=== PATIENT | female | born 1950 | race Caucasian/White ===

== ENCOUNTER 2022-05-14 11:01 | Outpatient (REF) | payer MEDICARE, SELFPAY ==
[2022-05-14 14:07] LABS: Cholesterol 246 mg/dL; HDL Cholesterol 66 mg/dL; LDL Cholesterol Calculated 166 mg/dl; Triglycerides 72 mg/dL
[2022-05-14 14:37] LABS: Folate 9.4 ng/mL (> or = 4.0); Vitamin B12 335 pg/mL (200-900)
[2022-05-16 08:56] LABS: CA-125 7 U/mL (<35)
== END 2022-05-14 11:02 | disposition home or self-care (01) ==
LOC: HO.HMGCLDS 11:01
PROVIDERS: Visit Provider Internal Medicine
DX: C56.9 Malignant neoplasm of unspecified ovary (principal); E55.9 Vitamin D deficiency, unspecified; E78.5 Hyperlipidemia, unspecified
CPT/HCPCS: 36415; 80061; 82607; 82746; 86304

== ENCOUNTER 2022-06-16 11:35 | Outpatient (REF) | payer MEDICARE, SELFPAY ==
--- NOTE | ~2022-06-16 | XR_ITS ---
EXAMINATION: XR KNEE AP STANDING CLINICAL INFORMATION: Knee pain. COMPARISON: None TECHNIQUE: AP bilateral standing view of the knees was obtained. FINDINGS: Both knees show osteoarthritis greatest medial knee joint compartments with secondary bilateral genu varus. There is subchondral sclerosis and osteophytes from the femoral condyles and tibial plateau. No visible erosive change or chondrocalcinosis. There may be a geode within the right lateral tibial plateau. XR/XR knee standing BI IMPRESSION: Bilateral osteoarthritis greatest medial compartment with bilateral secondary genu varus.
== END 2022-06-16 11:36 | disposition home or self-care (01) ==
LOC: HO.XRAY 11:35
PROVIDERS: PCP Internal Medicine; Visit Provider Internal Medicine
DX: M25.561 Pain in right knee (principal); M25.562 Pain in left knee; M17.0 Bilateral primary osteoarthritis of knee; M21.162 Varus deformity, not elsewhere classified, left knee; M21.161 Varus deformity, not elsewhere classified, right knee
CPT/HCPCS: 73565

== ENCOUNTER 2023-10-04 10:42 | Outpatient (AMB) | payer MEDICARE, SELFPAY ==
--- NOTE | 2023-10-04 10:44 | A.OFFPC_ITS ---
Vital Signs 10/04/23 10:47 Height 5 ft 4 in Weight 228 lb BMI 39.1 BP 132/76 Blood Pressure Location Lt brachial Position Sitting Pulse 88 Pulse Source Pulse Oximeter Pulse Oximetry (%) 96 Oxygen Delivery Method Room Air Intake Visit Reasons: 6M FOLLOW UP HTN Intake Note: Pt is here today for 6 months follow up visit. Allergies No Known Allergies Allergy (Verified 10/04/23 10:59) Medication List - Last Reconciled 10/04/23 by Jennifer Singh MD levothyroxine 100 mcg PO DAILY lisinopril 10 mg PO DAILY meloxicam 15 mg PO DAILY pravastatin 20 mg PO DAILY varicella-zoster gE-AS01B (PF) 50 mcg/0.5 mL 0.5 mL IM DIRECTED Tobacco use date assessed: 10/04/23 Fall risk assessment: No Falls in past year Last assessed Fall Risk: 10/04/23 Dental Screening Dental Screen Date: 10/04/23 Did you have a dental visit in the last 12 months?: Yes Did you have a dental problem in the last 6 months where you did not have access to dental care?: No Was dental information given to patient?: Patient has dentist HPI 6M FOLLOW UP HTN HPI Details Pt presents for f/u HTN and hyperlipid, stable on meds. [facility] Medical History Annual physical exam Esophageal ulcer Hyperlipidemia Hypertension Hypothyroidism Osteoarthritis Ovarian ca Overweight SVT (supraventricular tachycardia) Thyroid nodule Vitamin D deficiency Surgical History H/O colonoscopy History of total abdominal hysterectomy and bilateral salpingo-oophorectomy Family History (Updated 10/04/23 @ 11:01 by Felicitas Shaw Dio) Father No problems noted. Mother No problems noted. Social History Housing: House Alcohol intake: never Patient Tobacco Use Status: Former Tobacco user Quit Date: 40 years ago e-Cigarette/Vaping Use: Never Used Second Hand Smoke Exposure: No service: No Current occupational status: retired Cognitive needs: No Hearing needs: No Vision needs: Yes Questionnaire PHQ-9 Over the last 2 weeks, how often have you been bothered by any of the following problems? 1. Little interest or pleasure in doing things: not at all 2. Feeling down, depressed, or hopeless: not at all 3. Trouble falling or staying asleep, or sleeping too much: not at all 4. Feeling tired or having little energy: not at all 5. Poor appetite or overeating: not at all 6. Feeling bad about yourself - or that you are a failure or have let yourself or your family down: not at all 7. Trouble concentrating on things, such as reading the newspaper or watching television: not at all 8. Moving or speaking so slowly that other people could have noticed. Or the opposite - being so fidgety or restless that you have been moving around a lot more than usual: not at all 9. Thoughts that you would be better off or of hurting yourself in some way: not at all Total score: 0 Depression Screening Interpretation: Negative Depression Screening Done: Yes 90114 - PHQ-9 Billing: Yes Source: Developed by Drs. Sang Walker, Isabel Hall, Jaycob Milan and colleagues, with an educational tonny from [employer]. Thrive Questionnaire Date Thrive assessed: 10/04/23 I am a: Patient What is your living situation today?: I have a steady place to live Within the past 12 months, did the food you bought not last and you didn't have the money to get more?: Never true Within the past 12 months, did you worry whether your food would run out before you got money to buy more?: Never true Do you have trouble paying for medicines?: No Do you have trouble getting transportation to medical appointments?: No AUDIT C Alcohol Use Questionnaire (AUDIT-C) 1. How often do you have a drink containing alcohol?: Never 3. How often do you have six or more drinks on one occasion?: Never Total Score: 0 FLORI-7 AMB Questionnaire FLORI-7 Feeling nervous, anxious, or on edge: 0 = Not at all Not being able to stop or control worryin = Not at all Worrying too much about different things: 0 = Not at all Trouble relaxin = Not at all Being so restless that it is hard to sit still: 0 = Not at all Becoming easily annoyed or irritable: 0 = Not at all Feeling afraid as if something awful might happen: 0 = Not at all Total FLORI-7 score (0-4 normal; 5-9 mild; 10-14 moderate; 15-21 severe): 0 Source: Developed by Drs. Sang Walker, Isabel Hall, Jaycob Milan and colleagues, with an educational tonny from [employer]. Review of Systems Const All systems reviewed & are unremarkable except as noted in HPI and below Reports no additional complaints Eyes Reports no additional complaints ENT Reports no additional complaints Card Reports no additional complaints Resp Reports no additional complaints GI Reports no additional complaints Reports no additional complaints Musc Reports no additional complaints Physical exam (Primary Care) Vital Signs: Last Vital Signs Pulse 88 10/04/23 10:47 BP 132/76 10/04/23 10:47 Pulse Ox 96 10/04/23 10:47 Oxygen Delivery Method Room Air 10/04/23 10:47 BMI result Body Mass Index 39.1 Tobacco/Smoking Status: Tobacco use Status Tobacco use date assessed 10/04/23 10/04/23 11:04 Patient Tobacco Use Status Former Tobacco user 10/04/23 10:45 e-Cigarette/Vaping Use Never Used 10/04/23 10:45 PHQ-9: PHQ-9 Score PHQ-9: Total score 0 10/04/23 11:04 Depression Screening Interpretation: Negative Thrive Assessment: Date of Thrive Assessment Date Thrive assessed 10/04/23 10/04/23 11:04 Assessment and Plan Assessment & Plan (1) Hypothyroidism: Code(s): E03.9 - Hypothyroidism, unspecified Plan: cont Levothyroxine (2) Hyperlipidemia: Code(s): E78.5 - Hyperlipidemia, unspecified Plan: cont Pravastain (3) Hypertension: Code(s): I10 - Essential (primary) hypertension Plan: cont Lisinopril (4) Hyperglycemia: Code(s): R73.9 - Hyperglycemia, unspecified Plan: ADA diet, increase exercise, weight loss discussed Orders: Orders TSH reflex Free T4 6 Months E03.9 - Hypothyroidism, unspecified, E78.5 - Hyperlipidemia, unspecified, I10 - Essential (primary) hypertension, R73.9 - Hyperglycemia, unspecified Hemoglobin A1c 6 Months C56.9 - Malignant neoplasm of unspecified ovary, R73.9 - Hyperglycemia, unspecified Comprehensive [place]. Panel Fast 6 Months E03.9 - Hypothyroidism, unspecified, E7 8.5 - Hyperlipidemia, unspecified, I10 - Essential (primary) hypertension, R73.9 - Hyperglycemia, unspecified Complete Blood Count Auto Diff 6 Months E03.9 - Hypothyroidism, unspecified, E78.5 - Hyperlipidemia, unspecified, I10 - Essential (primary) hypertension, R73.9 - Hyperglycemia, unspecified Lipid Panel 6 Months E03.9 - Hypothyroidism, unspecified, E78.5 - Hyperlipidemia, unspecified, I10 - Essential (primary) hypertension, R73.9 - Hyperglycemia, unspecified CA-125 6 Months C56.9 - Malignant neoplasm of unspecified ovary, R73.9 - Hyperglycemia, unspecified Medications: New lisinopril 10 mg PO DAILY 90 tabs 3RF Refilled levothyroxine 100 mcg PO DAILY 90 tabs 3RF Discontinued lisinopril Discontinued Reason: Doctor's Order 5 mg PO BID 180 tabs 3RF Coding Level of Care Code Est Pt Level 4 (23783) Diagnoses Hypothyroidism E03.9 Hyperlipidemia E78.5 Hypertension I10 Hyperglycemia R73.9
[2023-10-04 10:47] VITALS: BP 132/76; PULSE 88; O2SAT 96; BMI 39.1
== END 2023-10-04 11:56 | disposition home or self-care (01) ==
PROVIDERS: PCP Internal Medicine; Visit Provider Internal Medicine
DX: E03.9 Hypothyroidism, unspecified (principal); E78.5 Hyperlipidemia, unspecified; I10 Essential (primary) hypertension; R73.9 Hyperglycemia, unspecified
CPT/HCPCS: 99214

== ENCOUNTER 2024-03-17 12:57 | Outpatient (AMB) | payer MEDICARE, SELFPAY ==
[2024-03-17 13:10] VITALS: BP 128/76; PULSE 64; O2SAT 96; BMI 37.8
--- NOTE | 2024-03-17 13:10 | MHC.PC.OV ---
Vital Signs 03/17/24 13:10 Height 5 ft 4 in Weight 220 lb BMI 37.8 BP 128/76 Blood Pressure Location Lt brachial Position Sitting Pulse 64 Pulse Source Pulse Oximeter Pulse Oximetry (%) 96 Oxygen Delivery Method Room Air Intake Visit Reasons: 03/30 upper eyelid blepharoplasty Intake Note: Pt is here today for a pre op visit. Allergies No Known Allergies Allergy (Verified 03/17/24 13:17) Medication List - Last Reconciled 03/17/24 by Jennifer Singh MD levothyroxine 100 mcg PO DAILY lisinopril 10 mg PO DAILY meloxicam 15 mg PO DAILY pravastatin 20 mg PO DAILY varicella-zoster gE-AS01B (PF) 50 mcg/0.5 mL 0.5 mL IM DIRECTED Tobacco use date assessed: 03/17/24 Fall risk assessment: No Falls in past year Last assessed Fall Risk: 03/17/24 Dental Screening Dental Screen Date: 03/17/24 Did you have a dental visit in the last 12 months?: Yes Did you have a dental problem in the last 6 months where you did not have access to dental care?: No Was dental information given to patient?: Patient has dentist HPI 03/30 upper eyelid blepharoplasty HPI Details Pt presents for preop for [place] blepharoplasty. HTN, hyperlipid, are controlled on current medications. [facility] Medical History Esophageal ulcer Annual physical exam Vitamin D deficiency Osteoarthritis Thyroid nodule SVT (supraventricular tachycardia) Hyperlipidemia Ovarian ca Overweight Hypothyroidism Hypertension Surgical History H/O colonoscopy History of total abdominal hysterectomy and bilateral salpingo-oophorectomy Family History Father No problems noted. Mother No problems noted. Social History Housing: House Alcohol intake: never Patient Tobacco Use Status: Former Tobacco user Quit Date: 40 years ago e-Cigarette/Vaping Use: Never Used Second Hand Smoke Exposure: No service: No Current occupational status: retired Cognitive needs: No Hearing needs: No Vision needs: Yes Questionnaire PHQ-9 Over the last 2 weeks, how often have you been bothered by any of the following problems? 1. Little interest or pleasure in doing things: not at all 2. Feeling down, depressed, or hopeless: not at all 3. Trouble falling or staying asleep, or sleeping too much: not at all 4. Feeling tired or having little energy: not at all 5. Poor appetite or overeating: not at all 6. Feeling bad about yourself - or that you are a failure or have let yourself or your family down: not at all 7. Trouble concentrating on things, such as reading the newspaper or watching television: not at all 8. Moving or speaking so slowly that other people could have noticed. Or the opposite - being so fidgety or restless that you have been moving around a lot more than usual: not at all 9. Thoughts that you would be better off or of hurting yourself in some way: not at all Total score: 0 Depression Screening Interpretation: Negative Depression Screening Done: Yes Source: Developed by Drs. Sang Walker, Isabel Hall, Jaycob Milan and colleagues, with an educational tonny from [email or web address]. Thrive Questionnaire Date Thrive assessed: 03/17/24 I am a: Patient What is your living situation today?: I have a steady place to live Within the past 12 months, did the food you bought not last and you didn't have the money to get more?: Never true Within the past 12 months, did you worry whether your food would run out before you got money to buy more?: Never true Do you have trouble paying for medicines?: No Do you have trouble getting transportation to medical appointments?: No Do you have trouble paying your heating and electricity bill?: No Do you have trouble taking care of your child, family member or friend?: No Do you have trouble with day-to-day activities such as bathing, preparing meals, shopping, managing finances, etc.?: No Are you currently unemployed and looking for a job?: No Are you interested in more education?: No Please select the resources that you would like help with: None THRIVE Score: 0 AUDIT C Alcohol Use Questionnaire (AUDIT-C) 1. How often do you have a drink containing alcohol?: Never 3. How often do you have six or more drinks on one occasion?: Never Total Score: 0 FLORI-7 AMB Questionnaire FLORI-7 Date FLORI - 7 assessed: 03/17/24 Feeling nervous, anxious, or on edge: 0 = Not at all Not being able to stop or control worryin = Not at all Worrying too much about different things: 0 = Not at all Trouble relaxin = Not at all Being so restless that it is hard to sit still: 0 = Not at all Becoming easily annoyed or irritable: 0 = Not at all Feeling afraid as if something awful might happen: 0 = Not at all Total FLORI-7 score (0-4 normal; 5-9 mild; 10-14 moderate; 15-21 severe): 0 Source: Developed by Drs. Sang Walker, Isabel Hall, Jaycob Milan and colleagues, with an educational tonny from [email or web address]. Review of Systems Const All systems reviewed & are unremarkable except as noted in HPI and below Eyes Reports no additional complaints ENT Reports no additional complaints Card Reports no additional complaints Resp Reports no additional complaints GI Reports no additional complaints Physical exam (Primary Care) Vital Signs: Last Vital Signs Pulse 64 03/17/24 13:10 BP 128/76 03/17/24 13:10 Pulse Ox 96 03/17/24 13:10 Oxygen Delivery Method Room Air 03/17/24 13:10 BMI result Body Mass Index 37.8 Tobacco/Smoking Status: Tobacco use Status Tobacco use date assessed 03/17/24 03/17/24 13:22 Patient Tobacco Use Status Former Tobacco user 03/17/24 13:22 e-Cigarette/Vaping Use Never Used 03/17/24 13:10 PHQ-9: PHQ-9 Score PHQ-9: Total score 0 03/17/24 13:28 Depression Screening Interpretation: Negative Thrive Assessment: Date of Thrive Assessment Date Thrive assessed 03/17/24 03/17/24 13:28 HENMT Face and sinus: Yes normal facial exam Neck Neck: Yes supple Resp Effort & Inspection: normal respiratory effort Auscultation: clear to auscultation bilaterally Cardio Rhythm: regular rhythm Heart sounds: S1 normal heart sound present and S2 normal heart sound present GI Inspection: Yes normal to inspection Palpation (GI): Soft to palpation Percussion: Yes normal to percussion Auscultation: normal bowel sounds Assessment and Plan Assessment & Plan (1) Ovarian ca: Comment: s/p EUSEBIO/BSO Code(s): C56.9 - Malignant neoplasm of unspecified ovary Plan: Monitor CA 125 (2) Hyperglycemia: Code(s): R73.9 - Hyperglycemia, unspecified Plan: Continue ADA diet, regular exercise return in 4 months with a fasting labs before including A1c (3) Hypertension: Code(s): I10 - Essential (primary) hypertension Plan: Continue current medications (4) Hypothyroidism: Code(s): E03.9 - Hypothyroidism, unspecified Plan: Continue levothyroxine (5) Hyperlipidemia: Code(s): E78.5 - Hyperlipidemia, unspecified Plan: Continue statin (6) Dermatochalasis of both upper eyelids: Code(s): H02.831 - Dermatochalasis of right upper eyelid; H02.834 - Dermatochalasis of left upper eyelid Plan: EKG showed normal sinus rhythm no ST-T changes. Patient is medically cleared for bilateral upper lid blepharoplasty Orders: Orders AMB EKG-In Office Today E03.9 - Hypothyroidism, unspecified, I10 - Essential (primary) hypertension Comprehensive [place]. Panel Fast 4 Months C56.9 - Malignant neoplasm of unspecified ovary, E03.9 - Hypothyroidism, unspecified, E78.5 - Hyperlipidemia, unspecified, I10 - Essential (primary) hypertension, R73.9 - Hyperglycemia, unspecified Hemoglobin A1c 4 Months C56.9 - Malignant neoplasm of unspecified ovary, E03.9 - Hypothyroidism, unspecified, E78.5 - Hyperlipidemia, unspecified, I10 - Essential (primary) hypertension, R73.9 - Hyperglycemia, unspecified Lipid Panel 4 Months C56.9 - Malignant neoplasm of unspecified ovary, E03.9 - Hypothyroidism, unspecified, E78.5 - Hyperlipidemia, unspecified, I10 - Essential (primary) hypertension, R73.9 - Hyperglycemia, unspecified Complete Blood Count Auto Diff 4 Months C56.9 - Malignant neoplasm of unspecified ovary, E03.9 - Hypothyroidism, unspecified, E78.5 - Hyperlipidemia, unspecified, I10 - Essential (primary) hypertension, R73.9 - Hyperglycemia, unspecified TSH reflex Free T4 4 Months C56.9 - Malignant neoplasm of unspecified ovary, E03.9 - Hypothyroidism, unspecified, E78.5 - Hyperlipidemia, unspecified, I10 - Essential (primary) hypertension, R73.9 - Hyperglycemia, unspecified CA-125 4 Months C56.9 - Malignant neoplasm of unspecified ovary, E03.9 - Hypothyroidism, unspecified, E78.5 - Hyperlipidemia, unspecified, I10 - Essential (primary) hypertension, R73.9 - Hyperglycemia, unspecified Coding Level of Care Code Est Pt Level 4 (01986) Diagnoses Ovarian ca C56.9 Hyperglycemia R73.9 Hypertension I10 Hypothyroidism E03.9 Hyperlipidemia E78.5 Dermatochalasis of both upper eyelids H02.831; H02.834
== END 2024-03-17 13:43 | disposition home or self-care (01) ==
PROVIDERS: PCP Internal Medicine; Visit Provider Internal Medicine
DX: C56.9 Malignant neoplasm of unspecified ovary (principal); R73.9 Hyperglycemia, unspecified; I10 Essential (primary) hypertension; E03.9 Hypothyroidism, unspecified; E78.5 Hyperlipidemia, unspecified; H02.831 Dermatochalasis of right upper eyelid; H02.834 Dermatochalasis of left upper eyelid
CPT/HCPCS: 99214

== ENCOUNTER 2024-07-10 11:52 | Outpatient (AMB) | payer MEDICARE, OTHER, SELFPAY ==
[2024-07-10 11:56] VITALS: BP 130/74; PULSE 69; O2SAT 99; BMI 37.8
--- NOTE | 2024-07-10 11:56 | MHC.PC.OV ---
Vital Signs 07/10/24 11:56 Height 5 ft 4 in Weight 220 lb BMI 37.8 BP 130/74 Blood Pressure Location Rt brachial Position Sitting Pulse 69 Pulse Source Pulse Oximeter Pulse Oximetry (%) 99 Oxygen Delivery Method Room Air Intake Visit Reasons: Annual PE Intake Note: Pt is here today for PE. Allergies lisinopril Adverse Reaction (Intermediate, Verified 07/10/24 12:48) Cough Tobacco use date assessed: 07/10/24 Fall risk assessment: No Falls in past year Last assessed Fall Risk: 07/10/24 Dental Screening Dental Screen Date: 03/17/24 HPI Annual PE HPI Details Pt presents for PE. Patient complains of chronic dry cough worse when laying down. She denies GERD symptoms reports intermittent postnasal drip but no other allergy . symptoms. Patient denies PND orthopnea dyspnea on exertion or chest pain, night sweats. PFSH Medical History Esophageal ulcer Annual physical exam Vitamin D deficiency Osteoarthritis Thyroid nodule SVT (supraventricular tachycardia) Hyperlipidemia Ovarian ca Overweight Hypothyroidism Hypertension Surgical History H/O colonoscopy History of total abdominal hysterectomy and bilateral salpingo-oophorectomy Family History Father No problems noted. Mother No problems noted. Social History Housing: House Alcohol intake: never Patient Tobacco Use Status: Former Tobacco user e-Cigarette/Vaping Use: Never Used Second Hand Smoke Exposure: No service: No Current occupational status: retired Cognitive needs: No Hearing needs: No Vision needs: Yes Questionnaire PHQ-9 Over the last 2 weeks, how often have you been bothered by any of the following problems? 1. Little interest or pleasure in doing things: not at all 2. Feeling down, depressed, or hopeless: not at all 3. Trouble falling or staying asleep, or sleeping too much: not at all 4. Feeling tired or having little energy: not at all 5. Poor appetite or overeating: not at all 6. Feeling bad about yourself - or that you are a failure or have let yourself or your family down: not at all 7. Trouble concentrating on things, such as reading the newspaper or watching television: not at all 8. Moving or speaking so slowly that other people could have noticed. Or the opposite - being so fidgety or restless that you have been moving around a lot more than usual: not at all 9. Thoughts that you would be better off or of hurting yourself in some way: not at all Total score: 0 Depression Screening Interpretation: Negative Depression Screening Done: Yes 43499 - PHQ-9 Billing: Yes Source: Developed by Drs. Sang Walker, Isabel Hall, Jaycob Milan and colleagues, with an educational tonny from [employer]. Thrive Questionnaire Date Thrive assessed: 07/10/24 I am a: Patient What is your living situation today?: I have a steady place to live Within the past 12 months, did the food you bought not last and you didn't have the money to get more?: Never true Within the past 12 months, did you worry whether your food would run out before you got money to buy more?: Never true Do you have trouble paying for medicines?: No Do you have trouble getting transportation to medical appointments?: No Do you have trouble paying your heating and electricity bill?: No Do you have trouble taking care of your child, family member or friend?: No Do you have trouble with day-to-day activities such as bathing, preparing meals, shopping, managing finances, etc.?: No Are you currently unemployed and looking for a job?: No Are you interested in more education?: No THRIVE Score: 0 AUDIT C Alcohol Use Questionnaire (AUDIT-C) 1. How often do you have a drink containing alcohol?: Never 3. How often do you have six or more drinks on one occasion?: Never Total Score: 0 FLORI-7 AMB Questionnaire FLORI-7 Date FLORI - 7 assessed: 07/10/24 Source: Developed by Drs. Sang Walker, Isabel Hall, Jaycob Milan and colleagues, with an educational tonny from [employer]. Review of Systems Const All systems reviewed & are unremarkable except as noted in HPI and below Reports no additional complaints Eyes Reports no additional complaints ENT Reports no additional complaints Card Reports no additional complaints Resp Reports no additional complaints GI Reports no additional complaints Reports no additional complaints Musc Reports no additional complaints Physical exam (Primary Care) Vital Signs: Last Vital Signs Pulse 69 07/10/24 11:56 BP 130/74 07/10/24 11:56 Pulse Ox 99 07/10/24 11:56 Oxygen Delivery Method Room Air 07/10/24 11:56 BMI result Body Mass Index 37.8 Tobacco/Smoking Status: Tobacco use Status Tobacco use date assessed 07/10/24 07/10/24 12:00 Patient Tobacco Use Status Former Tobacco user 07/10/24 12:00 e-Cigarette/Vaping Use Never Used 07/10/24 12:00 PHQ-9: PHQ-9 Score PHQ-9: Total score 0 07/10/24 12:02 Depression Screening Interpretation: Negative Thrive Assessment: Date of Thrive Assessment Date Thrive assessed 07/10/24 07/10/24 12:00 Const General: no acute distress HENMT Head: Yes normal to inspection Ears: hearing grossly normal bilaterally Face and sinus: Yes normal facial exam Mouth: Normal oral and palatal mucosa present Throat: Yes posterior oropharynx normal Eyes General: appearance normal, both eyes and all related structures Neck Neck: Yes no lymphadenopathy and Yes supple Resp Effort & Inspection: normal respiratory effort Auscultation: clear to auscultation bilaterally Cardio Rhythm: regular rhythm Heart sounds: S1 normal heart sound present and S2 normal heart sound present GI Inspection: Yes normal to inspection Palpation (GI): Soft to palpation Percussion: Yes normal to percussion Auscultation: normal bowel sounds Assessment and Plan Assessment & Plan (1) Hypertension: Code(s): I10 - Essential (primary) hypertension Plan: Change lisinopril to losartan 50 mg follow-up in 2 months and check BMP in 2 weeks (2) Ovarian ca: Comment: s/p EUSEBIO/BSO Code(s): C56.9 - Malignant neoplasm of unspecified ovary Plan: Monitor CA 125 (3) Annual physical exam: Code(s): Z00.00 - Encounter for general adult medical examination without abnormal findings Plan: Well-balanced diet increase exercise weight loss discussed with the patient. She is up-to-date with the mammogram (4) Hypothyroidism: Code(s): E03.9 - Hypothyroidism, unspecified Plan: Continue levothyroxine (5) Hyperlipidemia: Code(s): E78.5 - Hyperlipidemia, unspecified Plan: Continue pravastatin low-cholesterol diet Orders: Orders Basic Metabolic Panel 2 Weeks I10 - Essential (primary) hypertension Medications: New losartan 50 mg PO DAILY 90 tabs 0RF Refilled levothyroxine 100 mcg PO DAILY 90 tabs 3RF pravastatin 20 mg PO DAILY 90 tabs 3RF Discontinued lisinopril Discontinued Reason: Doctor's Order 10 mg PO DAILY 90 tabs 3RF Coding Level of Care Code Est Pt Prev Care >65y(70376) Diagnoses Hypertension I10 Ovarian ca C56.9 Annual physical exam Z00.00 Hypothyroidism E03.9 Hyperlipidemia E78.5
== END 2024-07-10 12:46 | disposition home or self-care (01) ==
PROVIDERS: PCP Internal Medicine; Visit Provider Internal Medicine
DX: I10 Essential (primary) hypertension (principal); C56.9 Malignant neoplasm of unspecified ovary; E03.9 Hypothyroidism, unspecified; E78.5 Hyperlipidemia, unspecified
CPT/HCPCS: 99214

== ENCOUNTER 2025-04-30 11:07 | Outpatient (AMB) | payer MEDICARE, OTHER, SELFPAY ==
--- NOTE | 2025-04-30 11:12 | A.OFFPC_ITS ---
Vital Signs 04/30/25 11:21 Height 5 ft 4 in Weight 217 lb BMI 37.2 BP 132/82 Blood Pressure Location Lt brachial Position Sitting Respiration 18 Pulse 66 Pulse Source Pulse Oximeter Temp 98.3 F Temp Source Oral Pulse Oximetry (%) 97 Oxygen Delivery Method Room Air Intake Visit Reasons: Review of blood work Intake Note: Pt is here today for a follow up visit on blood work. Allergies lisinopril Adverse Reaction (Intermediate, Verified 04/30/25 11:25) Cough Medication List - Last Reconciled 04/30/25 by Jennifer Singh MD levothyroxine 100 mcg PO DAILY losartan 50 mg PO DAILY meloxicam 15 mg PO DAILY pravastatin 20 mg PO DAILY varicella-zoster gE-AS01B (PF) 50 mcg/0.5 mL 0.5 mL IM DIRECTED Tobacco use date assessed: 04/30/25 Fall risk assessment: No Falls in past year Last assessed Fall Risk: 04/30/25 Dental Screening Dental Screen Date: 04/30/25 Did you have a dental visit in the last 12 months?: Yes Did you have a dental problem in the last 6 months where you did not have access to dental care?: No Was dental information given to patient?: Patient has dentist HPI Review of blood work HPI Details Pt presents for f/u HTN and hypothyroid, hyperlipid. Patient spends 6 months in [place] and is established with primary care doctor in [place]. Patient denies complaints [facility] Medical History Esophageal ulcer Annual physical exam Vitamin D deficiency Osteoarthritis Thyroid nodule SVT (supraventricular tachycardia) Hyperlipidemia Ovarian ca Overweight Hypothyroidism Hypertension Surgical History (Reviewed 04/30/25 @ 11:28 by Felicitas Shaw [facility]) H/O colonoscopy History of total abdominal hysterectomy and bilateral salpingo-oophorectomy Family History Father No problems noted. Mother No problems noted. Social History Housing: House Alcohol intake: never Patient Tobacco Use Status: Former Tobacco user e-Cigarette/Vaping Use: Never Used Second Hand Smoke Exposure: No service: No Current occupational status: retired Cognitive needs: No Hearing needs: No Vision needs: Yes Questionnaire Thrive Questionnaire Date Thrive assessed: 04/30/25 AUDIT C Alcohol Use Questionnaire (AUDIT-C) 1. How often do you have a drink containing alcohol?: Never 3. How often do you have six or more drinks on one occasion?: Never Total Score: 0 FLORI-7 AMB Questionnaire FLORI-7 Date FLORI - 7 assessed: 07/10/24 Source: Developed by Drs. Sang Walker, Isabel Hall, Jaycob Milan and colleagues, with an educational tonny from [employer]. Review of Systems Const All systems reviewed & are unremarkable except as noted in HPI and below Eyes Reports no additional complaints ENT Reports no additional complaints Card Reports no additional complaints Resp Reports no additional complaints GI Reports no additional complaints Reports no additional complaints Musc Reports no additional complaints Physical exam (Primary Care) Vital Signs: Last Vital Signs Temp 98.3 F 04/30/25 11:21 Pulse 66 04/30/25 11:21 Resp 18 04/30/25 11:21 BP 132/82 04/30/25 11:21 Pulse Ox 97 04/30/25 11:21 Oxygen Delivery Method Room Air 04/30/25 11:21 BMI result Body Mass Index 37.2 Tobacco/Smoking Status: Tobacco use Status Tobacco use date assessed 04/30/25 04/30/25 11:28 Patient Tobacco Use Status Former Tobacco user 04/30/25 11:28 e-Cigarette/Vaping Use Never Used 04/30/25 11:12 Thrive Assessment: Date of Thrive Assessment Date Thrive assessed 04/30/25 04/30/25 11:12 Const General: no acute distress HENMT Head: Yes normal to inspection Face and sinus: Yes normal facial exam Eyes General: appearance normal, both eyes and all related structures Neck Neck: Yes supple Resp Effort & Inspection: normal respiratory effort Auscultation: clear to auscultation bilaterally Cardio Rhythm: regular rhythm Heart sounds: S1 normal heart sound present and S2 normal heart sound present GI Inspection: Yes normal to inspection Palpation (GI): Soft to palpation Percussion: Yes normal to percussion Auscultation: normal bowel sounds Coding Level of Care Code Est Pt Level 4 (26544) Diagnoses Hypertension I10 Hyperlipidemia E78.5 Hyperglycemia R73.9 Hypothyroidism E03.9 Assessment & Plan Assessment & Plan (1) Hypertension: Code(s): I10 - Essential (primary) hypertension Category: Medical Plan: cont Losartan (2) Hyperlipidemia: Code(s): E78.5 - Hyperlipidemia, unspecified Category: Medical Plan: cont Pravastatin (3) Hyperglycemia: Code(s): R73.9 - Hyperglycemia, unspecified Category: Medical Plan: A1C is 5.2, cont ADA, exercise, regular exercise. (4) Hypothyroidism: Code(s): E03.9 - Hypothyroidism, unspecified Category: Medical Plan: cont a thyroid replacement
[2025-04-30 11:21] VITALS: BP 132/82; PULSE 66; RESP 18; TEMP 36.8; O2SAT 97; BMI 37.2
--- OUTSIDE RECORDS SUMMARY | 2025-04-30 12:00 | XMS_ITS | Patient Health Record ---
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 Role Phone Jennifer Singh MD Primary Care Provider Shirley Tony Unavailable [phone] Reason For Referral No Information Medications Medication SIG (Take, Route, Frequency, Duration) Notes Start Date End Date Status Lisinopril 5 MG 1 tablet Orally Once a day Active Levothyroxine Sodium 88 MCG 1 tablet on an empty stomach in the morning Orally Once a day Active Social History Tobacco Use: Social History Observation Description Date Details (start date - stop date) Never Smoker NA - NA Tobacco Use/Smoking Question Answer Notes Are you a nonsmoker Alcohol Screen (Audit-C) Question Answer Notes Did you have a drink containing alcohol in the p ast year? No Points 0 Interpretation Negative Sexual History Question Answer Notes Had sex in the past 12 months (vaginal, oral, or anal)? Yes with Women only Prevention strategies discussed: Other Problems Problem Type SNOMED Code ICD Code Onset Dates Problem Status W/U Status Risk Notes Problem History of malignant neoplasm of ovary (149870763) Personal history of malignant neoplasm of ovary (Z85.43) Active confirmed Plan Of Treatment Pending Test Test Name Order Date MAMMOGRAM, SCREENING 07/04/2020 CANC ANT-125 10/07/2018 BONE DENSITY 07/04/2020 MM Digital Mammo Screening 07/04/2020 Insurance Providers Payer Name Payer Address Payer Phone Subscriber Number Group Number Insured Name Patient Relationship to Insured Coverage Start Date Coverage End Date MEDICARE [address] [place], [place] [id number] ANA AKBAR Self - patient is the insured [facility] [address] [place] [address] [id number] ANA AKBAR Self - patient is the insured Medical (General) History Medical History History ICD Code Malignant neoplasm of unspecified ovary C56.9 Essential (primary) hypertension I10 Thyroid disease Hormone replacement therapy Z79.890 Surgical History Surgery Date(Month/Year) Colonoscopy EUSEBIO/BSO - Ovarian Cancer Hospitalization History Reason Date(Month/Year) 1 Vaginal Delivery See Surgical Hx
== END 2025-04-30 12:11 | disposition home or self-care (01) ==
LOC: HO.HMCC 11:07
PROVIDERS: PCP Internal Medicine; Visit Provider Internal Medicine
DX: I10 Essential (primary) hypertension (principal); E78.5 Hyperlipidemia, unspecified; R73.9 Hyperglycemia, unspecified; E03.9 Hypothyroidism, unspecified

== ENCOUNTER → 2025-04-30 11:07 | Outpatient (BNVA) | payer MEDICARE, OTHER, SELFPAY | PROVIDERS: PCP Internal Medicine; Visit Provider Internal Medicine | DX: I10 Essential (primary) hypertension (principal); E78.5 Hyperlipidemia, unspecified; E03.9 Hypothyroidism, unspecified; R73.9 Hyperglycemia, unspecified | CPT/HCPCS: 99212 ==

== ENCOUNTER 2025-08-21 12:00 | Outpatient (AMB) | payer MEDICARE, OTHER, SELFPAY ==
[2025-08-21 12:02] VITALS: BP 128/82; PULSE 79; RESP 18; TEMP 36.7; O2SAT 97; BMI 36.9
--- NOTE | 2025-08-21 12:02 | A.OFFPC_ITS ---
Vital Signs 08/21/25 12:02 Height 5 ft 4 in Weight 215 lb BMI 36.9 BP 128/82 Blood Pressure Location Lt brachial Position Sitting Respiration 18 Pulse 79 Pulse Source Pulse Oximeter Temp 98.0 F Temp Source Oral Pulse Oximetry (%) 97 Oxygen Delivery Method Room Air Intake Visit Reasons: HDF Intake Note: Pt is here today for HDF. Allergies lisinopril Adverse Reaction (Intermediate, Verified 08/21/25 12:21) Cough Medication List - Last Reconciled 08/21/25 by Jennifer Singh MD apixaban (Eliquis) 5 mg PO BID diltiazem HCl ER (Cardizem SR) 120 mg PO DAILY levothyroxine 100 mcg PO DAILY liothyronine 5 mcg PO DAILY losartan 50 mg PO DAILY pravastatin 20 mg PO DAILY varicella-zoster gE-AS01B (PF) 50 mcg/0.5 mL 0.5 mL IM DIRECTED Tobacco use date assessed: 08/21/25 Fall risk assessment: No Falls in past year Last assessed Fall Risk: 08/21/25 Dental Screening Dental Screen Date: 04/30/25 HPI HDF HPI Details Pt presents for HDF from August 17 to August 18 at [facility] for an episode A flutter. Patient was having phone call with her daughter when she started feeling palpitations lightheadedness check her heart rate on smart watch was up to 150. Patient went to [facility] ER and was found to be in a flutter 2:1. She was started on diltiazem drip and converted to normal sinus rhythm. Patient has not had any recurrent palpitations or abnormal heart rate since the discharge. She was discharged on diltiazem and Eliquis. She has a history of AFib and catheter [place] [facility] [place] [facility] Medical History (Updated 08/21/25 @ 12:51 by Jennifer Singh MD) Atrial flutter Esophageal ulcer Annual physical exam Vitamin D deficiency Osteoarthritis Thyroid nodule SVT (supraventricular tachycardia) Hyperlipidemia Ovarian ca Overweight Hypothyroidism Hypertension Surgical History H/O colonoscopy History of total abdominal hysterectomy and bilateral salpingo-oophorectomy Family History Father No problems noted. Mother No problems noted. Social History Housing: House Alcohol intake: never Patient Tobacco Use Status: Former Tobacco user e-Cigarette/Vaping Use: Never Used Second Hand Smoke Exposure: No service: No Current occupational status: retired Cognitive needs: No Hearing needs: No Vision needs: Yes Questionnaire PHQ-9 Over the last 2 weeks, how often have you been bothered by any of the following problems? 1. Little interest or pleasure in doing things: not at all 2. Feeling down, depressed, or hopeless: not at all 3. Trouble falling or staying asleep, or sleeping too much: not at all 4. Feeling tired or having little energy: not at all 5. Poor appetite or overeating: not at all 6. Feeling bad about yourself - or that you are a failure or have let yourself or your family down: not at all 7. Trouble concentrating on things, such as reading the newspaper or watching television: not at all 8. Moving or speaking so slowly that other people could have noticed. Or the opposite - being so fidgety or restless that you have been moving around a lot more than usual: not at all 9. Thoughts that you would be better off or of hurting yourself in some way: not at all Total score: 0 Depression Screening Interpretation: Negative Depression Screening Done: Yes Source: Developed by Drs. Sang Walker, Isabel Hall, Jaycob Milan and colleagues, with an educational tonny from [employer] Thrive Questionnaire Date Thrive assessed: 08/20/25 I am a: Patient What is your living situation today?: I have a steady place to live Within the past 12 months, did the food you bought not last and you didn't have the money to get more?: Never true Within the past 12 months, did you worry whether your food would run out before you got money to buy more?: Never true Do you have trouble paying for medicines?: No Do you have trouble getting transportation to medical appointments?: No Do you have trouble paying your heating and electricity bill?: No Do you have trouble taking care of your child, family member or friend?: No Do you have trouble with day-to-day activities such as bathing, preparing meals, shopping, managing finances, etc.?: No Are you currently unemployed and looking for a job?: No Are you interested in more education?: No Please select the resources that you would like help with: None Currently or been in a relationship where the following occur: I choose not to answer THRIVE Score: 0 AUDIT C Alcohol Use Questionnaire (AUDIT-C) 1. How often do you have a drink containing alcohol?: Never 3. How often do you have six or more drinks on one occasion?: Never Total Score: 0 FLORI-7 AMB Questionnaire FLORI-7 Date FLORI - 7 assessed: 07/10/24 Feeling nervous, anxious, or on edge: 0 = Not at all Not being able to stop or control worryin = Not at all Worrying too much about different things: 0 = Not at all Trouble relaxin = Not at all Being so restless that it is hard to sit still: 0 = Not at all Becoming easily annoyed or irritable: 0 = Not at all Feeling afraid as if something awful might happen: 0 = Not at all Total FLORI-7 score (0-4 normal; 5-9 mild; 10-14 moderate; 15-21 severe): 0 Source: Developed by Drs. Sang Walker, Isabel Hall, Jaycob Milan and colleagues, with an educational tonny from [employer]. Review of Systems Const All systems reviewed & are unremarkable except as noted in HPI and below ENT Reports no additional complaints Card Reports no additional complaints Resp Reports no additional complaints GI Reports no additional complaints Reports no additional complaints Physical exam (Primary Care) Vital Signs: Last Vital Signs Temp 98.0 F 08/21/25 12:02 Pulse 79 08/21/25 12:02 Resp 18 08/21/25 12:02 BP 128/82 08/21/25 12:02 Pulse Ox 97 08/21/25 12:02 Oxygen Delivery Method Room Air 08/21/25 12:02 BMI result Body Mass Index 36.9 Tobacco/Smoking Status: Tobacco use Status Tobacco use date assessed 08/21/25 08/21/25 12:02 Patient Tobacco Use Status Former Tobacco user 08/21/25 12:02 e-Cigarette/Vaping Use Never Used 08/21/25 12:02 PHQ-9: PHQ-9 Score PHQ-9: Total score 0 08/21/25 12:02 Depression Screening Interpretation: Negative Thrive Assessment: Date of Thrive Assessment Date Thrive assessed 08/20/25 08/21/25 12:02 Currently or been in a relationship where the following occur: I choose not to answer Const General: no acute distress HENMT Head: Yes normal to inspection Face and sinus: Yes normal facial exam Eyes General: appearance normal, both eyes and all related structures Neck Neck: Yes supple Resp Effort & Inspection: normal respiratory effort Auscultation: clear to auscultation bilaterally Cardio Rhythm: regular rhythm Heart sounds: S1 normal heart sound present and S2 normal heart sound present GI Inspection: Yes normal to inspection Coding Level of Care Code TCM Mod MDM <= 7 Days Diagnoses Atrial flutter I48.92 Hypertension I10 Assessment & Plan Assessment & Plan (1) Atrial flutter: Comment: H[place] of [place] [facility] [place] Code(s): I48.92 - Unspecified atrial flutter Category: Medical Plan: Continue diltiazem and Eliquis. EKG showed normal sinus rhythm heart rate 81, no ST-T changes. pt is referred for echocardiogram and line tender at [facility] (2) Hypertension: Code(s): I10 - Essential (primary) hypertension Category: Medical Plan: Continue current medications Orders: Orders CA echo transthoracic complete Today I48.92 - Unspecified atrial flutter Referrals Cardiology Referral I48.92 - Unspecified atrial flutter
--- OUTSIDE RECORDS SUMMARY | 2025-08-21 15:23 | XMS_ITS | Patient Health Record ---
Author Organization [facility] Address [address] [place] [id number] Care Team Providers Care Farmworker Animal Name Role Phone Jennifer Singh MD Primary Care Provider Shirley Tony Unavailable [phone] Reason For Referral No Information Medications Medication [...] Problem History of malignant neoplasm of ovary ([id number]) Personal history of malignant neoplasm of ovary [...] MEDICARE [address] [place] [id number] ANA AKBAR Self - patient is the insured [facility] [address] [place] [id number] ANA AKBAR Self - patient is the insured Medical (General) History Medical History History ICD Code Malignant neoplasm of unspecified ovary C56.9 Essential (primary) hypertension I10 Thyroid disease Hormone replacement therapy Z79.890 Surgical History Surgery Date(Month/Year) Colonoscopy EUSEBIO/BSO - Ovarian Cancer Hospitalization History Reason Date(Month/Year) 1 Vaginal Delivery See Surgical Hx
== END 2025-08-21 13:16 | disposition home or self-care (01) ==
LOC: HO.HMCC 12:01
PROVIDERS: PCP Internal Medicine; Visit Provider Internal Medicine
DX: I48.92 Unspecified atrial flutter (principal); I10 Essential (primary) hypertension

== ENCOUNTER → 2025-08-21 12:00 | Outpatient (BNVA) | payer MEDICARE, OTHER, SELFPAY | PROVIDERS: PCP Internal Medicine; Visit Provider Internal Medicine | DX: I10 Essential (primary) hypertension (principal); I48.92 Unspecified atrial flutter | CPT/HCPCS: 93005; 96127; 99212 ==